=== PATIENT | female | born 1990 | race African-American/Black ===

== ENCOUNTER 2017-12-13 22:35 | Day surgery (SDC) | payer BC, OTHER ==
[2017-12-13 23:15] VITALS: BMI 41.0
--- NOTE | 2017-12-13 23:33 | PDOC.LDHP ---
Labor and Delivery H&P Chief complaint: contractions HPI: This is a 27 y/o @ 37w4d presents due to ctx that started around 7pm and have gotten progressively more painful and closer together. She reports they are every 6 minutes. She reports good movement. She denies LOF, vaginal bleeding, vaginal d/c, headache, SOB, vision changes, RUQ pain, swelling. She has a h/o pre-e in both prior pregnancies. Current gestational age (weeks): 37 (37w4d) Due date: 12/30/17 Grav: 4 Para: 2 OB History Details: Term - induction around 38wks for pre-eclampsia Term - induction around 37 wks for pre-eclampsia Elective Ab Current complications: none Abnormal US findings: No Past Medical History: None Current medications: pre-brian vitamins Previous surgical history: none Social history: none - Physical Exam Abnormal vital signs: BP elevated in 140s-160s/80s-100s General: NAD Heart: RRR Lungs: CTAB Abdomen: gravid Extremeties: no edema FHT: category 1 (baseline 140s/mod variability/+accels/-decels), variability present [place] contractions every: none seen on toco - Vaginal Exam cm dilated: 2 Effacement: 50% Station: -2 - OB Labs Blood type: A RH: positive Antibody Screen: negative HIV: negative RPR: negative HEPSAg: negative GBS: positive Rubella: immune - Assessment 1. TIUP - rule out labor pt currently 250/-2, reports ctx q6min, but none are being picked up on toco. Unlikely that pt is in labor, or may be very early in latent labor at this time. 2. Elevated BP's - rule out pre-eclampsia first BP was systolic of 160, repeat was in the 140s. Pt has h/o pre-e in both prior pregnancies. BP's have been persistently elevated since arrival to L&D. She is not having any symptoms of pre-e at this time. - Plan -: -will do pre-eclampsia work-up with CBC, CMP, and urine protein/creatinine ratio -continue BP monitoring -labetalol prn SBP > 160, DBP > 110 - monitoring Dispo pending pre-eclampsia work-up <Maria C Becerra - Last Filed: 12/13/17 23:40> <Damion Heredia - Last Filed: 12/13/17 23:56> Allergies/Adverse Reactions: Allergies Allergy/AdvReac Type Severity Reaction Status Date / Time No Known Allergies Allergy Verified 12/13/17 23:55 Attending Addendum - Attending Addendum Date/Time: 12/13/17 6946 I personally evaluated the patient and discussed the management with Dr. Becerra. I agree with the History, Examination, Assessment and Plan documented above. Labs are pending. <Damion Heredia - Last Filed: 12/13/17 23:56>
[2017-12-13 23:50] LABS: #Basophils 0.1 thou/uL (0.0-0.2); #Eosinphils 0.2 thou/uL (0.0-0.7); #Lymphocytes 2.4 thou/uL (1.20-3.40); #Monocytes 0.6 thou/uL (0.11-0.59); #Neutrophils 5.5 thou/uL (1.40-6.50); %Eosinophils 2.6 % (0.0-10.0); %Monocytes 6.4 % (0.0-10.0); Hemoglobin 12.1 g/dL (12.0-16.0); Mean Corpuscular HGB CONC 32.6 g/dL (32.0-36.0); Mean Corpuscular Hemoglobin 28.5 pg (27.0-31.0); Mean Corpuscular Volume 87.4 fL (78.0-98.0); Mean Platelet Volume 8.1 fL (7.4-10.4); Platelet Count 227 thou/uL (130-400); Red Blood Cell (RBC) Count 4.26 mill/uL (4.20-5.40); White Blood Cell (WBC) Count 8.8 thou/uL (4.8-10.8)
[2017-12-14 00:10] LABS: ALT (SGPT) 16 U/L (8-55); AST (SGOT) 16 U/L (5-34); Albumin 3.6 g/dL (3.5-5.0); Alkaline Phosphatase 151 U/L (40-150); Anion Gap 11 mmol/L (10-20); BUN (Urea Nitrogen) 8 mg/dL (7.0-18.7); Bilirubin, Total 0.2 mg/dL (0.2-1.2); Calc. Creatinine Clearance 235 mL/min (70-130); Calcium 8.7 mg/dL (7.8-10.44); Carbon Dioxide 20 mmol/L (22-29); Chloride 109 mmol/L (98-107); Estimated GFR-MDRD Greater than 90; Globulin 3.4 g/dL (2.4-3.5); Glucose 99 mg/dL (70-105); Potassium 3.7 mmol/L (3.5-5.1); Sodium 136 mmol/L (136-145)
[2017-12-14 00:42] LABS: Creatinine, Urine 80.44 mg/dL (47-110); Protein, Urine Random Quant Less than 10 mg/dL (1-14)
--- NOTE | 2017-12-14 01:08 | PDOC.EVN ---
Event Note - Event Note Event Note: Labs reviewed and were normal. Platelet count, LFT's, creatinine, and urine prot /creatinine ratio were all WNL. BP's have been 130s-140s/80s-90s with only 2 severe range pressures on initial admission. Patient remains asymptomatic. Discussed the case with Dr. Borges and Dr. Heredia - will d/c patient home, but place on bedrest until seen in the office on Saturday. Gave strict pre-e precautions for pt to return for any headache not relieved with tylenol, RUQ pain, vision changes, regular/painful ctx, LOF, or decreased movement. <Maria C Becerra - Last Filed: 12/14/17 01:06> Attending Addendum - Attending Addendum Date/Time: 12/14/17 020 I personally evaluated the patient and discussed the management with Dr. Becerra. I agree with the History, Examination, Assessment and Plan documented above. I spoke with Dr. Borges. Plan is to have pt. on modified BR at home with BP check on Saturday12/16/17. PIH precautions are reviewed with her in detail. <Damion Heredia - Last Filed: 12/14/17 02:11>
== END 2017-12-14 01:13 | disposition home or self-care (01) ==
LOC: L&D/OP 22:35
PROVIDERS: ATTEND Obstetrics & Gynecology
DX: O47.1 False labor at or after 37 completed weeks of gestation (principal); Z3A.37 37 weeks gestation of pregnancy
CPT/HCPCS: 36415; 80053; 82570; 84156; 85025; 99284

== ENCOUNTER 2017-12-19 02:13 | Inpatient (IN) | payer OTHER ==
[2017-12-19] MEDS ORDERED: Penicillin G Potassium 5 MILL.UNITS VIAL ONE ×2 (02:35→03:55)
[2017-12-19 02:40] VITALS: BMI 41.6
[2017-12-19] MEDS ORDERED: NS / Oxytocin 40 units/1000ml 1,000 ML ONE (02:44)
[2017-12-19] MEDS ORDERED: Lidocaine 1% (PF) 30 ML VIAL ONE (02:44)
[2017-12-19] MEDS ORDERED: Acetaminophen 500 MG TAB PO PRN (02:52)
[2017-12-19] MEDS ORDERED: Butorphanol Tartrate 1 MG/ML VIAL SLOW IVP PRN (02:52)
[2017-12-19] MEDS ORDERED: Promethazine HCl 25 MG/ML VIAL IM PRN (02:52)
[2017-12-19] MEDS ORDERED: Ondansetron HCl/PF 4 MG/2 ML Vial IVP PRN ×2 (02:52→03:13)
[2017-12-19] MEDS ORDERED: Lactated Ringer's 1,000 ML IV SCH (02:52)
[2017-12-19] MEDS ORDERED: HYDROcodone/Acetaminophen 5/325 mg Tablet PO PRN ×2 (03:00)
[2017-12-19] MEDS ORDERED: Methylergonovine 0.2 MG/ML VIAL IM PRN (03:00)
[2017-12-19] MEDS ORDERED: Carboprost 250 MCG/ML AMP IM PRN (03:00)
[2017-12-19] MEDS ORDERED: Lidocaine 1% (PF) 30 ML VIAL SC PRN (03:00)
[2017-12-19] MEDS ORDERED: NS / Oxytocin 40 units/1000ml 1,000 ML IV SCH ×2 (03:00→03:15)
[2017-12-19] MEDS ORDERED: Ibuprofen 800 MG TAB PO PRN (03:00)
[2017-12-19] MEDS ORDERED: Penicillin G Potassium 5 MILL.UNITS in Sodium Chloride 0.9% 100 ML IVPB SCH (03:00)
[2017-12-19] MEDS ORDERED: NS w/ Oxytocin 10 units 500 ML IV SCH ×2 (03:00)
[2017-12-19] MEDS ORDERED: Misoprostol 200 MCG TAB RC PRN (03:00)
[2017-12-19] MEDS ORDERED: Preparation H Ointment 28 GM TUBE PR PRN (03:13)
[2017-12-19] MEDS ORDERED: Acetaminophen/Codeine 30-300mg Tablet PO PRN ×2 (03:13)
[2017-12-19] MEDS ORDERED: Milk Of Magnesia 30 ML UDCUP PO PRN (03:13)
[2017-12-19] MEDS ORDERED: Bisacodyl 10 MG SUPP PR PRN (03:13)
[2017-12-19] MEDS ORDERED: Zolpidem Tartrate 5 MG TAB PO PRN (03:13)
[2017-12-19] MEDS ORDERED: Adacel (T-DAP) 0.5 ML VIAL IM ONE (03:13)
[2017-12-19] MEDS ORDERED: Lanolin Ointment 7 GM TUBE TOP PRN (03:13)
[2017-12-19] MEDS ORDERED: Benzocaine/Menthol 20-0.5% 60 ML CAN TOP PRN (03:13)
[2017-12-19] MEDS ORDERED: Misoprostol 200 MCG TAB VAG PRN (03:13)
[2017-12-19] MEDS ORDERED: diphenhydrAMINE 25 MG CAP PO PRN (03:13)
[2017-12-19 04:45] LABS: Hemoglobin 12.3 g/dL (12.0-16.0); Mean Platelet Volume 8.7 fL (7.4-10.4); Platelet Count 200 thou/uL (130-400); RBC Distribution Width 12.1 % (11.5-14.5); Red Blood Cell (RBC) Count 4.23 mill/uL (4.20-5.40); White Blood Cell (WBC) Count 14.2 thou/uL (4.8-10.8)
[2017-12-19 05:13] LABS: Syphilis Antibody Nonreactive (Nonreactive); Syphilis Antibody Index 0.05 S/CO (<1.00 Non-Reactive)
[2017-12-19 05:14] LABS: HBSAg Index 0.28 S/CO (0-0.99); Hep B Surf Ag Non-Reactive S/CO (NonReactive)
[2017-12-19] MEDS: Ibuprofen 800 MG TAB PO SCH ×3 (06:10→21:06)
[2017-12-19] MEDS ORDERED: Penicillin G 2.5 MILL.units 50 ML IVPB SCH (07:00)
[2017-12-19] MEDS: Prenatal Vitamin 1 TAB PO SCH (10:19)
[2017-12-19] MEDS: Docusate Calcium (SURFAK) 240 MG CAP PO SCH ×2 (10:19→21:06)
[2017-12-19] MEDS: Ferrous Sulfate 325 MG TAB PO SCH ×2 (10:19→15:17)
[2017-12-19] MEDS ORDERED: Sodium Chloride 0.9% 10 ML ONE ×2 (14:10→14:51)
[2017-12-20] MEDS: Ibuprofen 800 MG TAB PO SCH ×3 (06:01→21:54)
[2017-12-20] MEDS: Ferrous Sulfate 325 MG TAB PO SCH ×2 (08:28→16:05)
[2017-12-20] MEDS: Prenatal Vitamin 1 TAB PO SCH (09:50)
[2017-12-20] MEDS: Docusate Calcium (SURFAK) 240 MG CAP PO SCH ×2 (09:50→20:20)
[2017-12-21] MEDS: Ibuprofen 800 MG TAB PO SCH (06:09)
[2017-12-21 08:03] VITALS: BP 123/76; TEMP 98.2
[2017-12-21] MEDS: Ferrous Sulfate 325 MG TAB PO SCH (08:22)
[2017-12-21] MEDS: Prenatal Vitamin 1 TAB PO SCH (09:10)
[2017-12-21] MEDS: Docusate Calcium (SURFAK) 240 MG CAP PO SCH (09:10)
== END 2017-12-21 09:50 | disposition home or self-care (01) | DRG 807 ==
LOC: L&D/OP 02:13 → L&D 02:50 → 3SE 05:42
PROVIDERS: ADMIT Obstetrics & Gynecology; ATTEND Obstetrics & Gynecology
PROC: 10E0XZZ Delivery of Products of Conception, External Approach (ICD-10-PCS; principal; 2017-12-19)
DX: O99.824 Streptococcus B carrier state complicating childbirth (principal); Z37.0 Single live birth; O62.3 Precipitate labor; Z3A.39 39 weeks gestation of pregnancy
CPT/HCPCS: 36415; 85027; 86780; 86850; 86900; 86901; 87340; 99285; A4216; J2001; J2540